=== PATIENT | female | born 1995 | race Caucasian/White ===

== ENCOUNTER 2016-12-19 19:43 | Emergency (ER) | payer OTHER ==
[2016-12-19 19:51] VITALS: TEMP 98.2
--- NOTE | 2016-12-19 22:20 | EDPHY ---
H & P Stated Complaint: Dislodged IUD, Cramps Source: Patient Exam Limitations: No limitations - Personal History LMP (Females 10-55): 1-7 Days Ago Current Tetanus Diphtheria and Acellular Pertussis (TDAP): Yes - Medical/Surgical History Hx Asthma: No Hx Chronic Respiratory Disease: No Hx Diabetes: No Hx Cardiac Disease: No Hx Renal Disease: No Hx Cirrhosis: No Hx Alcoholism: No Hx HIV/AIDS: No Hx Splenectomy or Spleen Trauma: No Other PMH: Hernia 2011 - Social History Smoking Status: Never smoked Time Seen by Provider: 12/19/16 22:17 HPI/ROS: HPI: This is a 21-year-old female who presents with Chief Complaint: "I think my IUD is dislodged" Location: pelvic Quality: dislodged IUD Duration: today Signs and Symptoms: No vaginal discharge, no abdominal pain, no fever, no dysuria, + scant amount of vaginal bleeding status post introitus Timing: Sudden, intermittent Severity: Mild Context: Copper [facility] Patient was having intercourse with her boyfriend this morning. He reported that he felt the IUD while having intercourse. After intercourse she started to have scant vaginal bleeding. She is concerned that her IUD is dislodged. Eating and drinking normally. Last menstrual period 1 week ago. Modifying Factors: Did not call her OBGYN Comment: ROS: Constitutional: No fever, no chills, no weight loss Eyes: No blurred vision Respiratory: No shortness of breath, no cough Cardiovascular: No chest pain Gastrointestinal: No nausea, no vomiting no diarrhea Genitourinary: No dysuria Extremities: No myalgias Neurologic: No weakness, no numbness Skin: No rashes Hematologic: No bruising, no bleeding MEDICAL/SURGICAL/SOCIAL HISTORY: Generally healthy. Denies surgical history. (Corry Vazquez) - Physical Exam Exam: CONSTITUTIONAL: Young adult well-appearing white female, awake and alert, no obvious distress HEENT: Atraumatic and normocephalic, PERRL, EOMI. Tympanic membranes clear. . Oropharynx clear, no exudate and moist pink mucosa. Airway patent. No lymphadenopathy. No meningismus. Cardiovascular: Normal S1/S2, regular rate, regular rhythm, without murmur rub or gallop. PULMONARY/CHEST: Symmetrical and nontender. Clear to auscultation bilaterally Good air movement. No accessory muscle usage. ABDOMEN: Soft, nondistended, nontender, no rebound, no guarding, no peritoneal signs, no masses or organomegaly. No CVAT. PELVIC: normal external genitalia, normal cervix, cervical os was closed, IUD strings visualized, no cervical motion tenderness, no adnexal mass, no discharge , scant mild bleeding. The exam was performed with a fibreglass gun hand. EXTREMITIES: 2/2 pulses, no deformities, no clubbing, no cyanosis or edema. NEUROLOGICAL: no focal neuro deficits. GCS 15. SKIN: Warm and dry, no erythema. no rash. Good capillary refill. (Corry Vazquez) Constitutional: Initial Vital Signs Temperature (C) 36.8 C 12/19/16 19:49 Heart Rate 63 12/19/16 19:49 Respiratory Rate 18 12/19/16 19:49 Blood Pressure 133/73 H 12/19/16 19:49 O2 Sat (%) 94 12/19/16 19:49 O2 Delivery Mode Room Air Allergies/Adverse Reactions: No Known Allergies Allergy (Verified 08/18/15 12:58) Medical Decision Making - Diagnostics Imaging Results: Imaging Impressions Pelvic/Renal Ultrasound 12/19/16 22:07 Impression: 1. Intrauterine device is in good position. 2. Mild amount of nonspecific free fluid in the pelvis. Report telephoned to Dr. Sim at 2325 hours. ED Course/Re-evaluation: Pelvic exam, ultrasound, urinalysis, urine . Urinalysis does not show any signs of infection. Urine negative Ultrasound shows IUD in place; no migration. No signs of ovarian torsion/ruptured ovarian cyst/PID/endometritis/ectopic Advised supportive [facility] (Corry Vazquez) Differential Diagnosis: Differential diagnosis includes but is not limited to urinary tract infection, dyspareunia, ovarian cyst, fibroid. (Corry Vazquez) Other Provider: PHYSICIAN DOCUMENTATION: The patient was evaluated and managed by the Physician Clinical Exercise Specialist. My co- signature indicates that I have reviewed this chart and I agree with the findings and plan of care as documented. I am the secondary supervising physician. (Sirisha Prakash) - Data Points Laboratory Results: 12/19/16 22:39 Urine Color YELLOW Urine Appearance HAZY Urine pH 7.0 (5.0-7.5) Ur Specific [place] 1.017 (1.002-1.030) Urine Protein NEGATIVE (NEGATIVE) Urine Ketones NEGATIVE (NEGATIVE) Urine Blood NEGATIVE (NEGATIVE) Urine Nitrate NEGATIVE (NEGATIVE) Urine Bilirubin NEGATIVE (NEGATIVE) Urine Urobilinogen NEGATIVE EU EU (0.2-1.0) Ur Leukocyte Esterase NEGATIVE (NEGATIVE) Urine Glucose NEGATIVE (NEGATIVE) Departure - Departure Disposition: Home, Routine, Self-Care Clinical Impression: IUD (intrauterine device) in place Condition: Good Instructions: Dysfunctional Uterine Bleeding (ED) Additional Instructions: Pelvic rest until vaginal bleeding stops. [facility] during intercourse or vaginal bleeding persists. Referrals: JV SHABAZZ [Primary Care Provider] - As per Instructions Celina Marte DO [Doctor of Osteopathy] - 2-3 days, if not improved
[2016-12-19 22:49] LABS: COLOR YELLOW; LEUKOCYTE ESTERASE,URINE NEGATIVE (NEGATIVE); NITRITE,URINE NEGATIVE (NEGATIVE)
[2016-12-20 00:16] VITALS: BP 130/73; PULSE 78; RESP 16; O2SAT 97
== END 2016-12-20 00:12 | disposition home or self-care (01) ==
DX: Z30.431 Encounter for routine checking of intrauterine contraceptive device (principal)